=== PATIENT | male | born 1950 | race Caucasian/White ===

== ENCOUNTER 2019-03-18 10:35 | Emergency (ER) | payer OTHER, BC ==
[2019-03-18] MEDS ORDERED: TDAP VACCINE 0.5 ML SUS IM ONE ×2 (10:39→11:34)
[2019-03-18 10:44] VITALS: RESP 18; TEMP 97.1; O2SAT 94
[2019-03-18 12:09] VITALS: BP 138/91; PULSE 77
== END 2019-03-18 12:00 | disposition home or self-care (01) | DRG 605 ==
LOC: ED 10:35
DX: S01.01XA Laceration without foreign body of scalp, initial encounter (principal); W20.8XXA Other cause of strike by thrown, projected or falling object, initial encounter
CPT/HCPCS: 12002; 70450; 72125; 90471; 90715; 99285; A4450; A6402